=== PATIENT | male | born 1960 | race Caucasian/White ===

== ENCOUNTER 2022-05-08 13:35 | Emergency (ER) | payer OTHER ==
[2022-05-08 14:00] VITALS: RESP 20; TEMP 98
[2022-05-08] MEDS ORDERED: FLUORESCEIN STRIPS 1 MG STRIP RIGHT EYE ONE (15:25)
[2022-05-08] MEDS ORDERED: PROPARACAINE 0.5% OPHTH DROPS 15 ML BTL RIGHT EYE STA (15:25)
[2022-05-08] MEDS ORDERED: traMADol 50 MG TAB PO STA (15:28)
[2022-05-08] MEDS ORDERED: valACYclovir HCL 1,000 MG TABLET PO SCH (15:30)
[2022-05-08] MEDS ORDERED: valACYclovir HCL 1,000 MG TABLET PO ONE (15:45)
--- NOTE | 2022-05-08 15:53 | ED ---
General Adult HPI - General Chief complaint: Eye Problems Stated complaint: Shingles in eye Time Seen by Provider: 05/08/22 15:07 Source: patient Mode of arrival: ambulatory Limitations: no limitations - History of Present Illness Initial comments: Patient is a 61-year-old male presenting for evaluation of shingles surrounding the right eye. Patient states that rash started 3 days ago, today when he woke up it was severely worse. There is swelling surrounding the right eye. Patient was seen in urgent care today, they advised him to report to ER for further examination. Patient admits to occasional stinging and itching near the inner corner of the eye. He admits to some light sensitivity and watering of the eye. He denies any diffuse globe pain or visual changes. No hearing loss or facial numbness or paralysis. - Related Data Previous Rx's Medication Instructions Recorded Artificial Tears-Hypromellose 1 drops RIGHT EYE TID #1 unit 05/08/22 [Artificial Tear Drops] Gabapentin [Neurontin] 100 mg PO TID 3 Days #9 cap 05/08/22 valACYclovir HCL [Valtrex] 1,000 mg PO TID 7 Days #21 tablet 05/08/22 Allergies Allergy/AdvReac Type Severity Reaction Status Date / Time Penicillins Allergy Unknown Verified 05/08/22 14:00 Review of Systems ROS Statement: Those systems with pertinent positive or pertinent negative responses have been documented in the HPI. ROS Other: All systems not noted in ROS Statement are negative. Past Medical History Past Medical History: No Reported History History of Any Multi-Drug Resistant Organisms: None Reported Additional Past Surgical History / Comment(s): neck Smoking Status: Never smoker Past Alcohol Use History: None Reported, Occasional Past Drug Use History: Marijuana General Exam Limitations: no limitations General appearance: alert, in no apparent distress Head exam: Present: atraumatic, normocephalic Eye exam: Present: PERRL, EOMI, conjunctival injection, periorbital swelling. Absent: periorbital tenderness Expanded Visual acuity (R) = 20/: 25 Visual acuity (L) = 20/: 50 Neck exam: Present: normal inspection Respiratory exam: Present: normal lung sounds bilaterally. Absent: respiratory distress, wheezes, rales, rhonchi, stridor Cardiovascular Exam: Present: regular rate, normal rhythm, normal heart sounds. Absent: systolic murmur, diastolic murmur, rubs, gallop, clicks Neurological exam: Present: alert, oriented X3, CN II-XII intact Psychiatric exam: Present: normal affect, normal mood Skin exam: Present: warm, dry, intact, vesicles (Shingles surrounding the right eye and forehead) Course Vital Signs 05/08/22 05/08/22 13:57 18:47 Temperature 98.0 F Pulse Rate 87 71 Respiratory 20 20 Rate Blood Pressure 181/100 193/119 O2 Sat by Pulse 97 98 Oximetry Medical Decision Making - Medical Decision Making Patient is a 7-year-old male who currently has shingles presenting for concerns of dendritic keratitis. Patient was seen in urgent care today who advised him to report to the ER. Patient states that rash started about 3 days ago, states that today when he woke up it was acutely worse. It is surrounding the right eye. Patient denies globe pain, he admits to some photophobia and watering. Visual acuity: Right eye 20/25 left eye 20/50. Fluorescein staining shows potential uptake at 12:00 on the iris. I spoke with Dr. Linder regarding these findings, he advised antiviral medication and artificial tears for any eye discomfort, he will see him in the office tomorrow morning. Patient is prescribed Valtrex and Neurontin. Given Dr. Linder's office's contact information and instructed to call them as soon as possible to arrange follow-up appointment. Follow-up with PCP. Report back to ER with any new or worsening symptoms. Discussed return parameters and answered all questions. Patient conveyed verbal understanding and agreed to the plan. I discussed this case in detail with my attending Dr. Simon. Disposition Clinical Impression: Shingles, Herpes zoster keratitis Disposition: HOME SELF-CARE Condition: Good Instructions (If sedation given, give patient instructions): Shingles (ED), Keratitis (ED) Additional Instructions: Follow-up with ophthalmology tomorrow in the office. Call office to schedule appointment. Report back to ER with any new or worsening symptoms. Take medication as prescribed. Prescriptions: Artificial Tears-Hypromellose [Artificial Tear Drops] 1 drops RIGHT EYE TID #1 unit Gabapentin [Neurontin] 100 mg PO TID 3 Days #9 cap valACYclovir HCL [Valtrex] 1,000 mg PO TID 7 Days #21 tablet Is patient prescribed a controlled substance at d/c from ED?: No Referrals: None,Stated [Primary Care Provider] - 1-2 days Musa Linder MD [STAFF PHYSICIAN] - 05/09/22 Time of Disposition: 18:17
[2022-05-08] MEDS ORDERED: GABAPENTIN 300 MG CAP PO STA (18:18)
[2022-05-08 18:48] VITALS: BP 193/119; PULSE 71
== END 2022-05-08 18:48 | disposition home or self-care (01) ==
LOC: EC 13:35
DX: B02.33 Zoster keratitis (principal); F12.90 Cannabis use, unspecified, uncomplicated; Z88.0 Allergy status to penicillin
CPT/HCPCS: 99283